=== PATIENT | male | born 1970 | race Asian ===

== ENCOUNTER 2023-12-23 21:28 | Inpatient (IN) | payer OTHER, SELFPAY ==
--- NOTE | 2023-12-23 22:38 | RAD REPORT ---
EXAM DESCRIPTION: Jon Single View12/23/2023 10:10 pm CLINICAL HISTORY: Cough COMPARISON: none FINDINGS: The lungs appear clear of acute infiltrate. The heart is normal size IMPRESSION: No acute abnormalities displayed
[2023-12-23] MEDS ORDERED: THIAMINE 200 MG/2 ML INJ ONE (23:07)
[2023-12-23] MEDS ORDERED: MULTIVITAMINS 10 ML VIAL (INJ) IV ONE (23:07)
[2023-12-23] MEDS ORDERED: FOLIC ACID 5 MG/ML VIAL ONE (23:08)
[2023-12-23] MEDS ORDERED: NA CHLORIDE 0.9% 2,000 ML ONE (23:09)
[2023-12-23 23:10] LABS: Absolute Basophils 0.1 K/uL (0-0.5); Absolute Lymphocytes (CBC) 1.4 K/uL (0.7-4.9); Absolute Monocytes 1.3 K/uL (0.1-1.3); Absolute Neutrophil 14.2 K/uL (1.8-8.0); Basophils % 0.4 % (0-1.3); Eosinophils % 0.2 % (0-4.4); Hematocrit 38.8 % (39.6-49.0); Hemoglobin 12.7 g/dL (13.6-17.9); Lymphocytes % 8.5 % (15.3-44.8); MCH 28.4 pg (27.0-35.0); MCHC 32.6 g/dL (32.0-36.0); MCV 87.1 fL (80-100); MPV 6.6 fL (7.6-11.3); Monocytes % 7.5 % (3.3-12.3); Neutrophils % 83.4 % (41.7-73.7); Nucleated Red Blood Cells % 0.2 % (0-0); Platelets 566 thou/uL (152-406); RBC Red Blood Cell Count 4.46 M/uL (4.33-5.43)
[2023-12-23 23:11] LABS: Protime INR 1.28
[2023-12-23 23:36] LABS: Bilirubin Direct 0.2 mg/dL (0-0.2); Bilirubin Total 0.7 mg/dL (0.2-1.0)
[2023-12-23 23:37] LABS: Albumin 3.3 g/dL (3.4-5.0); Albumin/Globulin Ratio 0.7 (1.1-1.8); Bilirubin Indirect, Calculated 0.5 mg/dL (0.2-0.8); Globulin 4.5 g/dL (2.3-3.5); Protein, Total 7.8 g/dL (6.4-8.2); Troponin High Sensitivity 4.2 pg/mL (<58.9)
--- NOTE | 2023-12-23 23:48 | ER ---
Nurse's Notes [facility] [place] Name: Otilio Vincent Age: 53 yrs Sex: Male : 1970 Arrival Date: 12/23/2023 Time: 21:28 Bed 4 Private MD: Diagnosis: Syncope Near;Dyspnea;Elevated white blood cell count;Weakness Presentation: 12/22 21:40 Chief complaint: Patient states: "I'm feeling tired and sweating" Triaged through [employer] ([employer] #[id number]) EMS states: Patient's family stated that he was sitting at the dining room table when he had a syncopal episode. 21:40 Coronavirus screen: At this time, the client does not indicate any symptoms associated [facility] with coronavirus-19. Ebola Screen: No symptoms or risks identified at this time. Initial Sepsis Screen: Does the patient meet any 2 criteria? No. Patient's initial sepsis screen is negative. Does the patient have a suspected source of infection? No. Patient's initial sepsis screen is negative. Risk Assessment: Do you want to hurt yourself or someone else? Patient reports no desire to harm self or others. Onset of symptoms was December 23, 2023. Care prior to arrival: Medication(s) given: Normal saline infusion, 1000 mL, IV initiated. 18 GA, in the right forearm, Glucose check: 161. 21:40 Method Of Arrival: EMS: [place] [id number] 21:40 Acuity: RODRIGO 3 jw7 Triage Assessment: 21:40 General: Appears in no apparent distress. comfortable, Behavior is calm, cooperative, jw7 appropriate for age. Pain: Denies pain. EENT: No deficits noted. No signs and/or symptoms were reported regarding the EENT system. Neuro: Level of Consciousness is awake, alert, obeys commands, Oriented to person, place, time, situation, Appropriate for age. Cardiovascular: Heart tones S1 S2 present Capillary refill < 3 seconds Clubbing of nail beds is absent JVD is absent Patient's skin is warm and dry. Respiratory: Airway is patent Trachea midline Respiratory effort is even, unlabored, Respiratory pattern is regular, symmetrical, Breath sounds are clear bilaterally. GI: Abdomen is flat, non-distended, Bowel sounds present X 4 quads. Abd is soft and non tender X 4 quads. : No deficits noted. No signs and/or symptoms were reported regarding the genitourinary system. Derm: Skin is intact, is healthy with good turgor, Skin is dry, Skin is normal, Skin temperature is warm. Musculoskeletal: Circulation, motion, and sensation intact. Range of motion: intact in all extremities. Historical: - Allergies: 21:40 No Known Allergies; jw7 - Home Meds: 21:40 None [Active]; jw7 - PMHx: 21:40 Gout; jw7 - PSHx: 21:40 Knee; jw7 - Immunization history:: Adult Immunizations up to date. - Infectious Disease History:: Denies. - Family history:: not pertinent. - Social history:: Smoking status: unknown. Screenin:40 [facility] ED Fall Risk Assessment (Adult) History of falling in the last 3 months, jw7 including since admission No falls in past 3 months (0 pts) Confusion or Disorientation No (0 pts) Intoxicated or Sedated No (0 pts) Impaired Gait No (0 pts) Mobility Assist Device Used No (0 pt) Altered Elimination No (0 pt) Score/Fall Risk Level 0 - 2 = Low Risk Oriented to surroundings, Maintained a safe environment, Educated pt \\T\\ family on fall prevention, incl call for assistance when getting out of bed. Abuse screen: Denies threats or abuse. Denies injuries from another. Nutritional screening: No deficits noted. Tuberculosis screening: No symptoms or risk factors identified. Assessment: 21:40 General: See Triage Assessment. jw7 23:00 Reassessment: Patient appears in no apparent distress at this time. No changes from [facility] previously documented assessment. Patient and/or family updated on plan of care and expected duration. Pain level reassessed. Patient is alert, oriented x 3, equal unlabored respirations, skin warm/dry/pink. 12/23 00:00 Reassessment: Patient appears in no apparent distress at this time. No changes from jw7 previously documented assessment. Patient and/or family updated on plan of care and expected duration. Pain level reassessed. Patient is alert, oriented x 3, equal unlabored respirations, skin warm/dry/pink. 01:00 Reassessment: Patient appears in no apparent distress at this time. No changes from 7 previously documented assessment. Patient and/or family updated on plan of care and expected duration. Pain level reassessed. Patient is alert, oriented x 3, equal unlabored respirations, skin warm/dry/pink. 02:00 Reassessment: Patient appears in no apparent distress at this time. No changes from jw7 previously documented assessment. Patient and/or family updated on plan of care and expected duration. Pain level reassessed. Patient is alert, oriented x 3, equal unlabored respirations, skin warm/dry/pink. Vital Signs: 12/22 21:40 BP 149 / 103; Pulse 87; Resp 17 S; Temp 98.1(O); Pulse Ox 98% on R/A; Weight 58 kg; jw7 Pain 0/10; 22:30 BP 148 / 98; Pulse 80; Resp 20 S; Pulse Ox 100% on R/A; jw7 23:30 BP 149 / 95; Pulse 84; Resp 19 S; Pulse Ox 99% on R/A; jw7 12/23 00:30 BP 155 / 98; Pulse 89; Resp 17 S; Pulse Ox 98% on R/A; jw7 01:14 BP 148 / 107; Pulse 82; Resp 19 S; Pulse Ox 98% on R/A; jw7 02:01 BP 131 / 93; Pulse 78; Resp 17 S; Pulse Ox 98% on R/A; jw7 12/22 21:40 Pain Scale: Adult jw7 ED Course: 12/22 21:37 Patient arrived in ED. vc1 21:40 Arm band placed on. jw7 21:40 Patient has correct armband on for positive identification. Bed in low position. Call jw7 light in reach. Side rails up X2. Provided Education on: Use of Call Light. 21:41 Rah Jo MD is Attending Physician. afsaneh 22:05 Triage completed. jw7 22:12 XRAY Chest (1 view) In Process Unspecified. EDMS 22:55 Inserted saline lock: 20 gauge in left forearm, using aseptic technique. Blood rc3 collected. 22:56 Basic Metabolic Panel Sent. rc3 22:56 CBC with Diff Sent. rc3 22:56 LFT's Sent. rc3 22:56 NT PRO-BNP Sent. rc3 22:56 Magnesium Sent. rc3 22:56 PT-INR Sent. rc3 22:56 Troponin HS Sent. rc3 22:56 CPK Sent. rc3 22:56 ETOH Level Sent. rc3 23:47 Toribio, Lio, MD is Hospitalizing Provider. afsaneh 23:57 CT Head Brain wo Cont In Process Unspecified. EDMS 12/23 00:03 CT Chest For PE Angio In Process Unspecified. EDMS 00:03 CT Abd/Pelvis - IV Contrast Only In Process Unspecified. EDMS 01:15 No provider procedures requiring assistance completed. Patient admitted, IV remains in jw7 place. Administered Medications: 12/22 23:30 Drug: foLIC Acid IVPB 1 mg IVPB once Route: IVPB; Site: right antecubital; jw7 12/23 01:10 Follow up: Response: No adverse reaction; IV Status: Completed infusion; IV Intake: jw7 0.2ml 12/22 23:31 Drug: NS 0.9% IV 1000 ml IV at 1 bolus Per protocol; 1000 mL bolus Route: IV; Rate: 1 jw7 bolus; Site: right antecubital; 12/23 01:11 Follow up: Response: No adverse reaction; IV Status: Completed infusion; IV Intake: jw7 1000ml 12/22 23:31 Drug: Banana Bag - (Multivitamin IV 1 amp, NS 0.9% IV 1000 ml, Thiamine IV 100 mg, jw7 foLIC Acid IVPB 1 mg) IV at 125 ml/hr once Route: IV; Rate: 125 ml/hr; Site: right antecubital; 12/23 01:10 Follow up: Response: No adverse reaction; IV Status: Completed infusion; IV Intake: jw7 1010ml 01:08 Not Given (Physician Discretion): ns 0.9% 1000 ml IV at 1 bolus Per protocol; 1000 mL jw7 bolus 01:10 Drug: Rocephin IV 1 grams IV at per protocol once; Given slow IV push per pharmacy jw7 instructions Route: IV; Rate: per protocol; Site: right forearm; 02:00 Follow up: Response: No adverse reaction; IV Status: Completed infusion; IV Intake: [id number] Medication: 01:15 VIS not applicable for this client. jw7 Intake: 01:10 IV: 1010ml; Total: 1010ml. jw7 01:10 IV: 0ml; Total: 1010ml. jw7 01:11 IV: 1000ml; Total: 2010ml. jw7 02:00 IV: 10ml; Total: 2020ml. jw7 Outcome: 12/22 23:48 Decision to Hospitalize by Provider. afsaneh 12/23 01:15 Admitted to Med/surg accompanied by tech, via stretcher, room 223, jw7 Condition: stable Instructed on the need for admit, Demonstrated understanding of instructions, 02:01 Patient left the ED. jw7 Signatures: Dispatcher [employer] EDRah Flores MD MD cha Calcote, Vanessa RN RN vc1 Marbella Hdz RN RN jw7 Jeannette Freeman 3 Corrections: (The following items were deleted from the chart) 12/22 22:06 21:40 PMHx: None; jerri jwTrini
--- NOTE | 2023-12-23 23:48 | EDPHYS ---
Physician Documentation [facility] Name: Otilio Vincent Age: 53 yrs Sex: Male : 1970 Arrival Date: 12/23/2023 Time: 21:28 Bed 4 Private MD: ED Physician Rah Jo HPI: 12/22 21:49 This 53 yrs old Male presents to ER via Unassigned with complaints of near afsaneh syncope. 21:49 pasted out at the table , got sweaty. The patient has experienced near-syncope, almost afsaneh passed out, felt dizzy, felt faint, felt generally weak. Onset: The symptoms/episode began/occurred just prior to arrival. Duration: This was a single episode, that lasted 30 second(s). Context: the episode(s) was witnessed, by family. Associated injury: The patient did not suffer any apparent associated injury. Severity of symptoms: At their worst the symptoms were mild in the emergency department the symptoms are unchanged. Historical: - Allergies: 21:40 No Known Allergies; jw7 - Home Meds: 21:40 None [Active]; jw7 - PMHx: 21:40 Gout; jw7 - PSHx: 21:40 Knee; jw7 - Immunization history:: Adult Immunizations up to date. - Infectious Disease History:: Denies. - Family history:: not pertinent. - Social history:: Smoking status: unknown. ROS: 21:49 Constitutional: Negative for fever, chills, and weight loss, Eyes: Negative for injury, afsaneh pain, redness, and discharge, ENT: Negative for injury, pain, and discharge, Neck: Negative for injury, pain, and swelling, Cardiovascular: Negative for chest pain, palpitations, and edema, Respiratory: Negative for shortness of breath, cough, wheezing, and pleuritic chest pain, Abdomen/GI: Negative for abdominal pain, nausea, vomiting, diarrhea, and constipation, Back: Negative for injury and pain, : Negative for injury, bleeding, discharge, and swelling, MS/Extremity: Negative for injury and deformity, Skin: Negative for injury, rash, and discoloration, Psych: Negative for depression, anxiety, suicide ideation, homicidal ideation, and hallucinations, Allergy/Immunology: Negative for hives, rash, and allergies, Endocrine: Negative for neck swelling, polydipsia, polyuria, polyphagia, and marked weight changes, Hematologic/Lymphatic: Negative for swollen nodes, abnormal bleeding, and unusual bruising, 21:49 Neuro: Positive for dizziness, near syncope, weakness, Exam: 21:49 Constitutional: This is a well developed, well nourished patient who is awake, alert, afsaneh and in no acute distress. Head/Face: Normocephalic, atraumatic. Eyes: Pupils equal round and reactive to light, extra-ocular motions intact. Lids and lashes normal. Conjunctiva and sclera are non-icteric and not injected. Cornea within normal limits. Periorbital areas with no swelling, redness, or edema. ENT: Nares patent. No nasal discharge, no septal abnormalities noted. Tympanic membranes are normal and external auditory canals are clear. Oropharynx with no redness, swelling, or masses, exudates, or evidence of obstruction, uvula midline. Mucous membranes moist. Neck: Trachea midline, no thyromegaly or masses palpated, and no cervical lymphadenopathy. Supple, full range of motion without nuchal rigidity, or vertebral point tenderness. No Meningismus. Chest/axilla: Normal chest wall appearance and motion. Nontender with no deformity. No lesions are appreciated. Cardiovascular: Regular rate and rhythm with a normal S1 and S2. No gallops, murmurs, or rubs. Normal PMI, no JVD. No pulse deficits. Respiratory: Lungs have equal breath sounds bilaterally, clear to auscultation and percussion. No rales, rhonchi or wheezes noted. No increased work of breathing, no retractions or nasal flaring. Abdomen/GI: Soft, non-tender, with normal bowel sounds. No distension or tympany. No guarding or rebound. No evidence of tenderness throughout. Back: No spinal tenderness. No costovertebral tenderness. Full range of motion. Male : Normal genitalia with no discharge or lesions. Skin: Warm, dry with normal turgor. Normal color with no rashes, no lesions, and no evidence of cellulitis. MS/ Extremity: Pulses equal, no cyanosis. Neurovascular intact. Full, normal range of motion. Neuro: Awake and alert, GCS 15, oriented to person, place, time, and situation. Cranial nerves II-XII grossly intact. Motor strength 5/5 in all extremities. Sensory grossly intact. Cerebellar exam normal. Normal gait. Psych: Awake, alert, with orientation to person, place and time. Behavior, mood, and affect are within normal limits. 21:49 Neuro: Orientation: is normal, appropriate for stated age, no acute changes, Mentation: is normal, appropriate for stated age, no acute changes, Memory: is normal, appropriate for stated age, no acute changes, Cranial nerves: grossly normal, is grossly normal based on the patient's age, no acute changes, Cerebellar function: is grossly normal, is grossly normal based on the patient's age, no acute changes, Motor: is normal, is grossly normal based on the patient's age, no acute changes, moves all fours, strength is 5/5 in all extremities, Sensation: is normal, no obvious gross deficits, appropriate no acute changes, Gait: not tested. Deep tendon reflexes are 2+ (normal) in the bilateral brachioradialis, bicep, tricep and patellar and Achilles tendons, Babinski testing is normal, seizure activity, is not displayed by the patient, Vital Signs: 21:40 BP 149 / 103; Pulse 87; Resp 17 S; Temp 98.1(O); Pulse Ox 98% on R/A; Weight 58 kg; 7 Pain 0/10; 22:30 BP 148 / 98; Pulse 80; Resp 20 S; Pulse Ox 100% on R/A; jw7 23:30 BP 149 / 95; Pulse 84; Resp 19 S; Pulse Ox 99% on R/A; jw7 12/23 00:30 BP 155 / 98; Pulse 89; Resp 17 S; Pulse Ox 98% on R/A; jw7 01:14 BP 148 / 107; Pulse 82; Resp 19 S; Pulse Ox 98% on R/A; jw7 02:01 BP 131 / 93; Pulse 78; Resp 17 S; Pulse Ox 98% on R/A; 7 12/22 21:40 Pain Scale: Adult [facility] MDM: 12/22 21:41 Patient medically screened. afsaneh 21:52 Differential Diagnosis altered mental status, sepsis, flu. Differential Diagnosis: afsaneh aortic aneurysm, cardiac arrhythmia, cerebrovascular accident, drug effect, GI bleed, idiopathic syncope, pseudo seizure, seizure, sepsis, transient ischemic attack, vasovagal episode. Data reviewed: vital signs, nurses notes, EMS record, lab test result(s), EKG, radiologic studies, CT scan, plain films. Consideration of Admission/Observation Patient was admitted/placed on observation. Escalation of care including admission/observation considered. I considered the following discharge prescriptions or medication management in the emergency department Medications were administered in the Emergency Department. See MAR. Independent interpretation of the following test(s) in the Emergency Department EKG: See my EKG interpretation above. Test considered but Not performed: CT: no mri brain. Historians other than the Patient: EMS: ems well informed. Care significantly affected by the following chronic conditions: gout. 12/22 21:47 Order name: Basic Metabolic Panel; Complete Time: 23:44 [facility] 12/22 21:47 Order name: CBC with Diff; Complete Time: 23:44 [facility] 12/22 21:47 Order name: LFT's; Complete Time: 23:44 [facility] 12/22 21:47 Order name: Magnesium; Complete Time: 23:44 [facility] 12/22 21:47 Order name: NT PRO-BNP; Complete Time: 23:44 [facility] 12/22 21:47 Order name: PT-INR; Complete Time: 23:17 [facility] 12/22 21:47 Order name: Troponin HS; Complete Time: 23:44 [facility] 12/22 21:47 Order name: Urinalysis w/ reflexes [facility] 12/22 21:47 Order name: ETOH Level; Complete Time: 23:44 [facility] 12/22 21:48 Order name: CPK; Complete Time: 23:44 [facility] 12/22 23:45 Order name: SARS RAPID [facility] 12/22 23:45 Order name: Influenza Screen (a \T\ B) [facility] 12/22 23:47 Order name: Blood Culture Adult (2) [facility] 12/22 23:47 Order name: Lactate w/ 2H reflex if indic. [facility] 12/23 00:25 Order name: Urinalysis w/ reflexes [facility] 12/23 00:25 Order name: CBC with Automated Diff [facility] 12/23 00:25 Order name: CBC with Automated Diff [facility] 12/23 00:25 Order name: Comprehensive Metabolic Panel [facility] 12/23 00:25 Order name: Comprehensive Metabolic Panel [facility] 12/23 00:25 Order name: Troponin High Sensitivity [facility] 12/23 00:25 Order name: Troponin High Sensitivity [facility] 12/23 00:25 Order name: Troponin High Sensitivity [facility] 12/23 00:25 Order name: Troponin High Sensitivity [facility] 12/22 21:47 Order name: XRAY Chest (1 view); Complete Time: 22:53 [facility] 12/22 21:47 Order name: CT Head Brain wo Cont [facility] 12/22 21:47 Order name: CT Chest For PE Angio [facility] 12/22 21:47 Order name: CT Abd/Pelvis - IV Contrast Only [facility] 12/22 21:47 Order name: EKG; Complete Time: 21:48 [facility] 12/22 21:47 Order name: Cardiac monitoring; Complete Time: 22:22 [facility] 12/22 21:47 Order name: EKG - Nurse/Tech; Complete Time: 22:37 [facility] 12/22 21:47 Order name: IV Saline Lock; Complete Time: 22:56 [facility] 12/22 21:47 Order name: Labs collected and sent; Complete Time: 22:56 [facility] 12/22 21:47 Order name: O2 Per Protocol; Complete Time: 22:22 [facility] 12/22 21:47 Order name: O2 Sat Monitoring; Complete Time: 22:22 [facility] Administered Medications: 23:30 Drug: foLIC Acid IVPB 1 mg IVPB once Route: IVPB; Site: right antecubital; 7 12/23 01:10 Follow up: Response: No adverse reaction; IV Status: Completed infusion; IV Intake: jw7 0.2ml 12/22 23:31 Drug: NS 0.9% IV 1000 ml IV at 1 bolus Per protocol; 1000 mL bolus Route: IV; Rate: 1 jw7 bolus; Site: right antecubital; 12/23 01:11 Follow up: Response: No adverse reaction; IV Status: Completed infusion; IV Intake: jw7 1000ml 12/22 23:31 Drug: Banana Bag - (Multivitamin IV 1 amp, NS 0.9% IV 1000 ml, Thiamine IV 100 mg, jw7 foLIC Acid IVPB 1 mg) IV at 125 ml/hr once Route: IV; Rate: 125 ml/hr; Site: right antecubital; 12/23 01:10 Follow up: Response: No adverse reaction; IV Status: Completed infusion; IV Intake: jw7 1010ml 01:08 Not Given (Physician Discretion): ns 0.9% 1000 ml IV at 1 bolus Per protocol; 1000 mL jw7 bolus 01:10 Drug: Rocephin IV 1 grams IV at per protocol once; Given slow IV push per pharmacy jw7 instructions Route: IV; Rate: per protocol; Site: right forearm; 02:00 Follow up: Response: No adverse reaction; IV Status: Completed infusion; IV Intake: [id number] Disposition Summary: 12/23/23 23:48 Hospitalization Ordered Notes: Hospitalization Status: Observation afsaneh Provider: Lio Toribio cha Location: Telemetry/MedSurg (observation) afsaneh Condition: Fair afsaneh Problem: new afsaneh Symptoms: have improved afsaneh Bed/Room Type: Standard [facility] Room Assignment: 223(12/24/23 00:35) kl Diagnosis - Syncope Near afsaneh - Dyspnea afsaneh - Elevated white blood cell count afsaneh - Weakness afsaneh Forms: - Medication Reconciliation Form afsaneh - SBAR form afsaneh - Leadership Thank You Letter [facility] Signatures: Dispatcher [employer] EDJeanne Valentin RN RN kl Anderson, Corey, MD MD cha Waits, Jodi, RN RN jw7 Corrections: (The following items were deleted from the chart) 12/22 22:06 21:40 PMHx: None; jw7 jw7 23:45 23:45 SARS-COV-2 Antigen Rapid+I.LAB.BRZ ordered. EDIL EDIL 23:45 23:45 Influenza Screen (A \T\ B)+BA.LAB.BRZ ordered. EDIL EDIL 12/23 00:35 12/22 23:48 afsaneh
--- NOTE | 2023-12-24 00:19 | P.HP ---
Certification for Inpatient Patient admitted to: Observation With expected LOS: <2 Midnights Practitioner: I am a practitioner with admitting privileges, knowledge of patient current condition, hospital course, and medical plan of care. Services: Services provided to patient in accordance with Admission requirements found in Title 42 Section 412.3 of the Code of Federal Regulations Patient History Date of Service: 12/24/23 Reason for admission: Syncope History of Present Illness: 53 yrs old Male with no significant past medical history other than gout who came to ER with near syncopal episode. Patient has been doing okay when all of a sudden he passed out at the table associated with sweating. He felt dizzy generalized weakness but no loss of consciousness and was brought to ER. No previous episodes. He did not fall down. Denies any chest pain or shortness of breath. No fever or chills. No sick contacts. No recent travel. Patient was assessed in the ER and was admitted for syncopal episode and workup Allergies No Known Allergies Allergy (Unverified 12/24/23 01:07) - Past Medical/Surgical History Has patient received pneumonia vaccine in the past: Yes Past Medical History: Reviewed- Non-Contributory Past Surgical History: Reviewed- Non-Contributory - Family History Family History: Reviewed- Non-Contributory - Family History Father Notes: Gout - Social History Smoking Status: Never smoker Review of Systems 10-point ROS is otherwise unremarkable Physical Examination - Vital Signs Temperature: 98.1 F Blood Pressure: 148/98 Pulse: 86 Respirations: 18 Pulse Ox (%): 94 - Physical Exam General: Alert, In no apparent distress, Oriented x3 HEENT: Atraumatic, Normocephalic Neck: Supple, 2+ carotid pulse no bruit, JVD not distended Respiratory: Clear to auscultation bilaterally, Normal air movement Cardiovascular: Normal pulses, Regular rate/rhythm, Normal S1 S2 Capillary refill: <2 Seconds Gastrointestinal: Soft and benign, Non-distended, W/out hepatosplenomegaly, No tenderness Musculoskeletal: No clubbing, No swelling Integumentary: No rashes, No breakdown Neurological: Normal gait, Normal speech, Normal strength at 5/5 x4 extr, Cranial nerves 3-12 intact, Normal reflexes 2+, Normal affect Lymphatics: No axilla or inguinal lymphadenopathy - Studies Laboratory Data (last 24 hrs) 06/12/23/23 12/23/23 22:45 22:45 22:45 WBC 17.00 H Hgb 12.7 L Hct 38.8 L Plt Count 566 H PT 14.0 H INR 1.28 Sodium 137 Potassium 4.0 BUN 14 Creatinine 1.17 Glucose 129 H Magnesium 2.0 Total Bilirubin 0.7 AST 15 ALT 23 Alkaline Phosphatase 73 Assessment and Plan - Problems (Diagnosis) (1) Syncope Current Visit: Yes Status: Acute Plan: Syncope no loss of consciousness Monitor closely on telemetry Will get a syncopal workup with head CT Will also get a CT chest PE protocol Will get an echocardiogram Also ordered a carotid Doppler Orthostatic vital signs PT eval Elevated blood pressure without history of hypertension Will monitor May start on antihypertensives Leukocytosis Thrombocytosis Possibly due to dehydration Started on IV fluid Will monitor CBC in a.m. GI/DVT prophylaxis Advanced directive full code Discharge Plan: Home Plan to discharge in: 24 Hours - Advance Directives Does patient have a Living Will: No Does patient have a Durable POA for Healthcare: No - Code Status/Comfort Care Code Status: Full Code Time Spent Managing Pts Care (In Minutes): 48
[2023-12-24] MEDS ORDERED: ONDANSETRON 4 MG/2 ML VIAL IV PRN (00:20)
[2023-12-24] MEDS ORDERED: CEFTRIAXONE 1000 MG/VIAL ONE (01:04)
[2023-12-24 01:13] LABS: SARS-CoV-2 Antigen CONTROL BLUE LINE VIS/BG OK; SARS-CoV-2 Antigen Rapid Res Negative (Negative)
[2023-12-24] MEDS: NA CHLORIDE 0.9% 1,000 ML IV SCH (02:50)
[2023-12-24 03:30] VITALS: BMI 20.6
--- NOTE | 2023-12-24 08:53 | RAD REPORT ---
EXAM DESCRIPTION: - CP - 12/24/2023 5:25 am CLINICAL HISTORY: syncope COMPARISON: No comparisons TECHNIQUE: Real-time sonographic grayscale, color duplex, and spectral wave Doppler evaluation of [facility] carotid systems was performed. FINDINGS: Normal high resistance waveforms are noted in both external carotid arteries. The common c arotid arteries and internal carotid arteries show normal low resistance waveforms. Zdrx-cf-kutziqpc mixed echogenicity bilateral plaque formation is seen at both carotid bulbs, demonst rating smooth contour on the right and mildly irregular contour on the left. Peak systolic velocity less than 125 cm/ sec bilaterally. ICA/CCA peak systolic ratios less than 2.0 bilaterally. Antegrade flow seen in both vertebral arteries. IMPRESSION: Xbcj-za-xwromkof atherosclerotic changes noted. Less than 50% stenosis of the ICAs bilaterally. Evaluation of carotid artery stenosis, if any, is reported based on consensus recommendations of the Society of Radiologists in Ultrasound (David et al., Radiology, 2003)
[2023-12-24] MEDS: ACETAMINOPHEN 325 MG TABLET PO PRN (10:45)
[2023-12-24] MEDS: ENOXAPARIN 40 MG/0.4 ML SQ SCH (10:46)
--- NOTE | 2023-12-24 15:34 | P.DS ---
Admission Date: 12/24/23 Discharge Date: 12/25/23 Reason for Admission: Syncope Brief History of Present Illness: 53 yrs old Male with no significant past medical history other than gout who came to ER with near syncopal episode. Patient has been doing okay when all of a sudden he passed out at the table associated with sweating. He felt dizzy generalized weakness but no loss of consciousness and was brought to ER. No previous episodes. He did not fall down. Denies any chest pain or shortness of breath. No fever or chills. No sick contacts. No recent travel.Patient was assessed in the ER and was admitted for syncopal episode and workup - Physical Exam General: Alert, In no apparent distress, Oriented x3 HEENT: Atraumatic, Normocephalic Neck: Supple, 2+ carotid pulse no bruit, JVD not distended Respiratory: Clear to auscultation bilaterally, Normal air movement Cardiovascular: Normal pulses, Regular rate/rhythm, Normal S1 S2 Capillary refill: <2 Seconds Gastrointestinal: Soft and benign, Non-distended, W/out hepatosplenomegaly, No tenderness Musculoskeletal: No clubbing, No swelling Integumentary: No rashes, No breakdown Neurological: Normal gait, Normal speech, Normal strength at 5/5 x4 extr, Cranial nerves 3-12 intact, Normal reflexes 2+, Normal affect Lymphatics: No axilla or inguinal lymphadenopathy Hospital Course: 53 yrs old Male with no significant past medical history other than gout who came to ER with near syncopal episode. Patient has been doing okay when all of a sudden he passed out at the table associated with sweating. He felt dizzy generalized weakness but no loss of consciousness and was brought to ER. Was noted to have low back pain, syncopal episode, Noted to have leukocytosis. Treated with IV fluids, IV antibiotics, as needed analgesics. Condition improved with IV fluids, as needed antiemetics, as needed analgesics. Patient tolerating diet, stable for discharge to home with follow-up appointment with primary care physician. PROBLEM: Syncopal episode serial radiology reports negative for acute fracture, acute finding Episodic hypertension Low back pain-May take xrgw-jnh-jiuskrk as needed analgesia Leukocytosis-discharged home on cefdinir, colchicine, prednisone Rad/Lab/Micro: Chest x-ray within normal limits CTA of the chest : 1. No acute findings on this contrasted CT Carotid Doppler IMPRESSION: Bxex-uv-syelyzjk atherosclerotic changes noted. Less than 50% stenosis of the ICAs bilaterally CT of the head IMPRESSION: No acute intracranial findings CT of the abdomen pelvis no evidence of acute fracture, . Findings suggest mild bilateral sacroiliitis Continue home medicines as previously prescribed GOAL: Clear understanding of disease process INSTRUCTIONS: Physician Discharge Instructions: -Follow-up with PCP in 1 to 2 weeks -Please call Dr. Saldaña at [phone] if any questions regarding hospital stay -Please call nursing station at [phone] if any nursing or medication questions -Return to the emergency room if symptoms worsen Diet: ADA, low sodium Activity: Fall precautions <Carlee Ventura - Last Filed: 12/26/23 14:54> Admission Date: 12/24/23 Discharge Date: 12/25/23 Hospital Course: Patient was seen and examined. Events of the last 24 hours have been noted. Spoke with with JOLYNN regarding patient's clinical picture after evaluating and examining the patient independently. I performed a substantial part of the MDM during this patient's care today. I personally made or approved the documented management plan and acknowledge its risk of complications. I agree with the findings and documentation provided in the JOLYNN's notes. <Lindsey Saldaña - Last Filed: 01/07/24 01:08> Disposition: ROUTINE DISCHARGE Discharge Condition: GOOD Vital Signs/Physical Exam: Temp Pulse Resp BP Pulse Ox 98.6 F 62 14 147/91 H 99 12/24/23 12:00 12/24/23 12:00 12/24/23 12:00 12/24/23 12:00 12/24/23 12:00 Laboratory Data at Discharge: WBC 17.00 thou/uL (4.3-10.9) H 12/23/23 22:45 Hgb 12.7 g/dL (13.6-17.9) L 12/23/23 22:45 Hct 38.8 % (39.6-49.0) L 12/23/23 22:45 Plt Count 566 thou/uL (152-406) H 12/23/23 22:45 PT 14.0 SECONDS (9.4-12.5) H 12/23/23 22:45 INR 1.28 12/23/23 22:45 Sodium 137 mEq/L (136-145) 12/23/23 22:45 Potassium 4.0 mEq/L (3.5-5.1) 12/23/23 22:45 BUN 14 mg/dL (7-18) 12/23/23 22:45 Creatinine 1.17 mg/dL (0.70-1.30) 12/23/23 22:45 Glucose 129 mg/dL (74-106) H 12/23/23 22:45 Magnesium 2.0 mg/dL (1.6-2.4) 12/23/23 22:45 Total Bilirubin 0.7 mg/dL (0.2-1.0) 12/23/23 22:45 AST 15 U/L (15-37) 12/23/23 22:45 ALT 23 U/L (16-61) 12/23/23 22:45 Alkaline Phosphatase 73 U/L (45-117) 12/23/23 22:45 <Carlee Ventura - Last Filed: 12/26/23 14:54> Vital Signs/Physical Exam: Temp Pulse Resp BP Pulse Ox 98.0 F 69 16 144/84 H 96 12/25/23 12:00 12/25/23 12:00 12/25/23 12:00 12/25/23 12:00 12/25/23 12:00 Laboratory Data at Discharge: WBC 14.00 thou/uL (4.3-10.9) H 12/25/23 06:11 Hgb 12.1 g/dL (13.6-17.9) L 12/25/23 06:11 Hct 36.5 % (39.6-49.0) L 12/25/23 06:11 Plt Count 581 thou/uL (152-406) H 12/25/23 06:11 PT 14.0 SECONDS (9.4-12.5) H 12/23/23 22:45 INR 1.28 12/23/23 22:45 Sodium 137 mEq/L (136-145) 12/25/23 06:11 Potassium 3.9 mEq/L (3.5-5.1) 12/25/23 06:11 BUN 18 mg/dL (7-18) 12/25/23 06:11 Creatinine 0.95 mg/dL (0.70-1.30) 12/25/23 06:11 Glucose 141 mg/dL (74-106) H 12/25/23 06:11 Uric Acid 7.7 mg/dL (3.5-7.2) H 12/24/23 17:19 Magnesium 2.0 mg/dL (1.6-2.4) 12/23/23 22:45 Total Bilirubin 0.3 mg/dL (0.2-1.0) 12/25/23 06:11 AST 17 U/L (15-37) 12/25/23 06:11 ALT 27 U/L (16-61) 12/25/23 06:11 Alkaline Phosphatase 81 U/L (45-117) 12/25/23 06:11 <Lindsey Saldaña - Last Filed: 01/07/24 01:08> Diet: Low sodium Activity: Fall precautions Time spent managing pt's care (in minutes): 55 <Carlee Ventura - Last Filed: 12/26/23 14:54> <Lindsey Saldaña - Last Filed: 01/07/24 01:08> Home Medications: Cefdinir [Cefdinir*] 300 mg PO BID #14 cap 12/25/23 Colchicine [Colcrys *] 0.6 mg PO DAILY #30 tab 12/25/23 predniSONE [Deltasone] 20 mg PO BID #20 tab 12/25/23 New Medications: Cefdinir [Cefdinir*] 300 mg PO BID #14 cap Colchicine [Colcrys *] 0.6 mg PO DAILY #30 tab predniSONE [Deltasone] 20 mg PO BID #20 tab Physician Discharge Instructions: -DC IV and DC home -Follow-up with PCP in 1 to 2 weeks -Follow-up with Applications Manager in 1 to 2 weeks -Please call Dr. Saldaña at [phone] if any questions regarding hospital stay -Please call nursing station at [phone] if any nursing or medication questions -Return to the emergency room if symptoms worsen Patient was found to have bilateral sacroiliitis; he was given steroids and antibiotics. He will need to follow-up with rheumatology in 1-2 weeks for GOUT He can call Dr. Saldaña at [phone] if any questions regarding hospital stay a nd to review his blood work for possible autoimmune arthritis Followup: KEVIN BROWN [Primary Care Provider] -
[2023-12-24] MEDS: dexAMETHasone 4 MG/ML VIAL IV ONE (16:58)
[2023-12-24 17:37] LABS: Absolute Basophils 0.2 K/uL (0-0.5); Absolute Lymphocytes (CBC) 2.6 K/uL (0.7-4.9); Absolute Monocytes 1.3 K/uL (0.1-1.3); Absolute Neutrophil 11.9 K/uL (1.8-8.0); Basophils % 1.1 % (0-1.3); Eosinophils % 0.3 % (0-4.4); Hematocrit 38.7 % (39.6-49.0); Hemoglobin 12.6 g/dL (13.6-17.9); Lymphocytes % 16.5 % (15.3-44.8); MCH 28.3 pg (27.0-35.0); MCHC 32.6 g/dL (32.0-36.0); MCV 86.9 fL (80-100); MPV 6.5 fL (7.6-11.3); Monocytes % 8.2 % (3.3-12.3); Neutrophils % 73.9 % (41.7-73.7); Nucleated Red Blood Cells % 0.1 % (0-0); Platelets 607 thou/uL (152-406); RBC Red Blood Cell Count 4.46 M/uL (4.33-5.43); Red Cell Distribution Width 14.9 % (12.1-15.2)
[2023-12-24 17:56] LABS: Rheumatoid Factor NEG (NEG)
[2023-12-24 17:59] LABS: Uric Acid 7.7 mg/dL (3.5-7.2)
[2023-12-24 20:20] LABS: Specific Gravity 1.012 (1.005-1.030); Sqamous Epithelial None Seen /HPF (None Seen); Urine Bacteria None Seen /HPF (<20); Urine Bilirubin NEGATIVE (Negative); Urine Blood Trace (Negative); Urine Clarity Clear (Clear); Urine Color Colorless (Yellow); Urine Culture Reflex Order NOT NEEDED; Urine Glucose NEGATIVE (Negative); Urine Ketones 1+ (Negative); Urine Microscopic Reflex YN ORDER UMIC; Urine Mucus Slight /HPF (None Seen); Urine Nitrite NEGATIVE (Negative); Urine Protein NEGATIVE (Negative); Urine RBC <5 /HPF (None Seen); Urine Urobilinogen Normal (Normal); Urine WBC <5 /HPF (<5); Urine pH 5.5 (5.0-7.0)
[2023-12-24] MEDS: dexAMETHasone 4 MG/ML VIAL IV SCH (22:24)
[2023-12-24 22:54] VITALS: O2SAT 96
[2023-12-25 06:30] LABS: Absolute Lymphocytes (CBC) 1.3 K/uL (0.7-4.9); Absolute Monocytes 0.2 K/uL (0.1-1.3); Absolute Neutrophil 12.4 K/uL (1.8-8.0); Basophils % 0.3 % (0-1.3); Hematocrit 36.5 % (39.6-49.0); Hemoglobin 12.1 g/dL (13.6-17.9); Lymphocytes % 9.5 % (15.3-44.8); MCH 28.6 pg (27.0-35.0); MCHC 33.1 g/dL (32.0-36.0); MCV 86.4 fL (80-100); MPV 6.5 fL (7.6-11.3); Monocytes % 1.3 % (3.3-12.3); Neutrophils % 88.9 % (41.7-73.7); Platelets 581 thou/uL (152-406); RBC Red Blood Cell Count 4.23 M/uL (4.33-5.43)
[2023-12-25 07:11] LABS: Albumin/Globulin Ratio 0.6 (1.1-1.8); Anion Gap 8.9 mEq/L (5.0-15.0); Bilirubin Total 0.3 mg/dL (0.2-1.0); Globulin 4.8 g/dL (2.3-3.5); Potassium 3.9 mEq/L (3.5-5.1); Protein, Total 7.8 g/dL (6.4-8.2)
--- NOTE | 2023-12-25 08:17 | P.PN ---
Date of Service: 12/24/23 Subjective Admitted with syncope, independent no acute issues while inpatient Review of Systems 10-point ROS is otherwise unremarkable Physical Examination - Vital Signs revewed - Physical Exam General: Alert, In no apparent distress, Oriented x3 HEENT: Atraumatic, Normocephalic Neck: Supple, 2+ carotid pulse no bruit, JVD not distended Respiratory: Clear to auscultation bilaterally, Normal air movement Cardiovascular: Normal pulses, Regular rate/rhythm, Normal S1 S2 Capillary refill: <2 Seconds Gastrointestinal: Soft and benign, Non-distended, W/out hepatosplenomegaly, No tenderness Musculoskeletal: No clubbing, No swelling Integumentary: No rashes, No breakdown Neurological: Normal gait, Normal speech, Normal strength at 5/5 x4 extr, Cranial nerves 3-12 intact, Normal reflexes 2+, Normal affect Lymphatics: No axilla or inguinal lymphadenopathy Assessment and Plan - Problems (Diagnosis) Syncope no loss of consciousness Monitor closely on telemetry Will get a syncopal workup with head CT Will also get a CT chest PE protocol Will get an echocardiogram Orthostatic vital signs PT eval Carotid ultrasound IMPRESSION: Bnxt-sg-rszfrdep atherosclerotic changes noted.Less than 50% stenosis of the ICAs bilaterally CT of the head no acute abnormality Elevated blood pressure without history of hypertension Will monitor May start on antihypertensives Leukocytosis Thrombocytosis Possibly due to dehydration Started on IV fluid Will monitor CBC in a.m. Blood cultures no growth Flu swab negative Chest x-ray IMPRESSION: No acute abnormalities displayed GI/DVT prophylaxis Advanced directive full code Discharge Plan: Home Plan to discharge in: 24 Hours - Advance Directives Does patient have a Living Will: No Does patient have a Durable POA for Healthcare: No - Code Status/Comfort Care Code Status: Full Code Time Spent Managing Pts Care (In Minutes): 35
[2023-12-25 09:32] LABS: Platelet Estimate ADEQ; White Blood Cell Scan OK (OK)
[2023-12-25 09:33] LABS: Blood Morphology Comment NOT SEEN (NOT SEEN)
[2023-12-25 12:11] VITALS: BP 144/84; TEMP 98
--- NOTE | 2023-12-25 14:08 | EKG ---
Test Date: 2023-12-23 Test Time: 22:33:08 Cable Respooler: RRC MEASUREMENT RESULTS: Intervals: Rate: 78 AR: 180 QRSD: 86 QT: 374 QTc: 426 Justice: P: 66 AR: 180 QRS: 59 T: 44 INTERPRETIVE STATEMENTS: Normal sinus rhythm Septal infarct, age undetermined Abnormal ECG No previous ECG available for comparison Electronically Signed On 12-25-23 14:06:13 CDT by Julio Murguia
--- NOTE | 2023-12-26 11:33 | RAD REPORT ---
EXAM DESCRIPTION: CT - Head Brain Wo Cont - 12/24/2023 7:07 am CLINICAL HISTORY: The patient is 53 years old and is Male; WEAKNESS TECHNIQUE: Axial computed tomography images of the head/brain without intravenous contrast. Sagitt al and coronal reformatted images were created and reviewed. This CT exam was performed using one o r more of the following dose reduction techniques: automated exposure control, adjustment of the mA and/or kV according to patient size, and/or use of iterative reconstruction technique. COMPARISON: No relevant prior studies available. FINDINGS: BRAIN: Bilateral basal ganglia calcifications are present. The barraza-white matter differe ntiation is preserved. No hemorrhage. No significant white matter disease. No edema. No extra-axi al fluid collections. VENTRICLES: Unremarkable. No ventriculomegaly. BONES/JOINTS: No acute fracture. SOFT TISSUES: Unremarkable. SINUSES: Unremarkable as visualized. No acute sinusitis. MASTOID AIR CELLS: Unremarkable as visualized. No mastoid effusion. ORBITS: Unremarkable as visualized. IMPRESSION: No acute intracranial findings. Electronically signed by: Izabela Gross MD 12/24/2023 12:19 AM CDT Due to temporary technical issues with the PACS/Fluency reporting system, reports are being signed by the in house radiologist without review as a courtesy to ensure prompt reporting. The interpreting r adiologist is fully responsible for the content of the report.
--- NOTE | 2023-12-26 11:40 | RAD REPORT ---
EXAM DESCRIPTION: CT - Chest For Pe Angio - 12/24/2023 7:07 am CLINICAL HISTORY: The patient is 53 years old and is Male; SOB TECHNIQUE: Axial computed tomographic angiography images of the chest with intravenous contrast. S agittal and coronal reformatted images were created and reviewed. This CT exam was performed using one or more of the following dose reduction techniques: automated exposure control, adjustment of t he mA and/or kV according to patient size, and/or use of iterative reconstruction technique. MIP reconstructed images were created and reviewed. COMPARISON: No relevant prior studies available. FINDINGS: PULMONARY ARTERIES: There are no obvious filling defects identified within the pulmonary arteries to suggest pulmonary embolism. AORTA: No acute findings. No thoracic aortic aneurysm. LUNGS: Minimal dependent densities in the lung bases are present. The lungs are otherwise well- inflated and clear. No mass. No consolidation. PLEURAL SPACE: Unremarkable. No significant effusion. No pneumothorax. HEART: Unremarkable. No cardiomegaly. No significant pericardial effusion. No evidence of R V dysfunction. BONES/JOINTS: No acute fracture. No dislocation. SOFT TISSUES: Unremarkable. LYMPH NODES: Unremarkable. No enlarged lymph nodes. IMPRESSION: No evidence of pulmonary embolism. Electronically signed by: Izabela Gross MD 12/24/2023 12:25 AM CDT RP Due to temporary technical issues with the PACS/Fluency reporting system, reports are being signed by the in house radiologist without review as a courtesy to ensure prompt reporting. The interpreting r adiologist is fully responsible for the content of the report.
--- NOTE | 2023-12-26 11:41 | RAD REPORT ---
EXAM DESCRIPTION: CT - Abdomen Pelvis W Contrast - 12/24/2023 7:07 am CLINICAL HISTORY: The patient is 53 years old and is Male; ABD PAIN TECHNIQUE: Axial computed tomography images of the abdomen and pelvis with intravenous contrast. S agittal and coronal reformatted images were created and reviewed. This CT exam was performed using one or more of the following dose reduction techniques: automated exposure control, adjustment of t he mA and/or kV according to patient size, and/or use of iterative reconstruction technique. COMPARISON: No relevant prior studies available. FINDINGS: LUNG BASES: Minimal dependent densities in the lung bases are present. No consolidatio n. ABDOMEN: LIVER: Unremarkable. No mass. GALLBLADDER AND BILE DUCTS: The gallbladder is contracted. PANCREAS: No ductal dilation. No mass. SPLEEN: Unremarkable. ADRENALS: Unremarkable. No mass. KIDNEYS AND URETERS: Exophytic renal cysts are present. No follow-up imaging is recommended. The kidneys enhance symmetrically and are without hydronephrosis or hydroureter. No obstructing renal or ureteral calculus is seen. STOMACH AND BOWEL: The stomach is minimally distended with food contents. The small bowel is flui d-filled and normal in caliber. Stool is present throughout the colon. There is no mucosal thickening or evidence of obstruction. PELVIS: APPENDIX: The appendix is normal in caliber without surrounding inflammation. BLADDER: Unremarkable. No mass. REPRODUCTIVE: Unremarkable as visualized. ABDOMEN and PELVIS: INTRAPERITONEAL SPACE: Unremarkable. No free air. No significant fluid collection. BONES/JOINTS: Mild irregularity of the bilateral sacroiliac joints is noted. Minimal degenerative change of the spine is present. There is no acute fracture. SOFT TISSUES: The soft tissues are normal. VASCULATURE: Atherosclerosis of the vasculature is present. The vessels are normal in caliber. No abdominal aortic aneurysm. LYMPH NODES: Unremarkable. No enlarged lymph nodes. IMPRESSION: 1. No acute findings on this contrasted CT of the abdomen and pelvis to explain the pa tient's symptoms. 2. Findings suggest mild bilateral sacroiliitis. Electronically signed by: Izabela Gross MD 12/24/2023 12:22 AM CDT RP Due to temporary technical issues with the PACS/Fluency reporting system, reports are being signed by the in house radiologist without review as a courtesy to ensure prompt reporting. The interpreting r adiologist is fully responsible for the content of the report.
--- NOTE | 2023-12-27 07:40 | ECHO ---
HEIGHT: 5 ft 6 in WEIGHT: 127 lb 12.8 oz DATE OF STUDY: 12/24/[address]: Joe Toribio DO 2-DIMENSIONAL: YES M.MODE: YES DOPPLER: YES COLOR FLOW: YES TDS: PORTABLE: YES DEFINITY: BUBBLE STUDY: DIAGNOSIS: SYNCOPE CARDIAC HISTORY: CATHERIZATION: NO SURGERY: NO PROSTHETIC VALVE: NO PACEMAKER: NO MEASUREMENTS (cm) DIASTOLIC (NORMALS) SYSTOLIC (NORMALS) IVSd 0.9 (0.6-1.2) LA Diam 3.0 (1.9-4.0) LVEF 65% LVIDd 4.3 (3.5-5.7) LVIDs 2.8 (2.0-3.5) %FS 35% LVPWd 0.9 (0.6-1.2) Ao Diam 3.0 (2.0-3.7) 2 DIMENSIONAL ASSESSMENT: RIGHT ATRIUM: NORMAL LEFT ATRIUM: NORMAL RIGHT VENTRICLE: NORMAL LEFT VENTRICLE: NORMAL TRICUSPID VALVE: NORMAL MITRAL VALVE: NORMAL, TRACE MITRAL REGURGITATION PULMONIC VALVE: NORMAL AORTIC VALVE: NORMAL, TRACE AORTIC REGURGITATION PERICARDIAL EFFUSION: NONE AORTIC ROOT: NORMAL LEFT VENTRICULAR WALL MOTION: NORMAL DOPPLER/COLOR FLOW: NORMAL COMMENTS: 1. NORMAL LEFT VENTRICULAR SYSTOLIC FUNCTION, EJECTION FRACTION 60-65%, NORMAL WALL MOTION 2. NORMAL DIASTOLIC FUNCTION TECHNOLOGIST: EMILY RODRIGUEZ
== END 2023-12-25 13:14 | disposition home or self-care (01) | DRG 312 ==
LOC: ER 21:28 → 2ND 12-24 00:20
PROVIDERS: ADMIT Family Medicine; ATTEND Hospitalist
DX: R55 Syncope and collapse (principal); I10 Essential (primary) hypertension; D72.829 Elevated white blood cell count, unspecified; D75.839 Thrombocytosis, unspecified; M10.9 Gout, unspecified; M54.50 Low back pain, unspecified; M46.1 Sacroiliitis, not elsewhere classified; M19.90 Unspecified osteoarthritis, unspecified site; Z11.52 Encounter for screening for COVID-19; Z79.52 Long term (current) use of systemic steroids; Z79.899 Other long term (current) drug therapy
CPT/HCPCS: 36415; 70450; 71045; 71275; 74177; 80048; 80053; 80076; 81001; 82077; 82550; 83605; 83735; 83880; 84145; 84484; 84550; 85025; 85610; 86140; 86200; 86430; 87040; 87804; 87811; 93005; 93306; 93880; 97161; 99285; J0696; J1100; J1650; J3411; J7030; Q9967